=== PATIENT | female | born 1950 | race African-American/Black ===

== ENCOUNTER 2017-11-15 11:29 | Observation (INO) ==
[2017-11-15] MEDS ORDERED: SODIUM CHLORIDE 0.9% 1,000 ML IV STA (13:21)
[2017-11-15] MEDS ORDERED: ONDANSETRON 4 MG/2 ML VIAL IV STA (13:21)
[2017-11-15 14:14] LABS: Bilirubin,Total 0.9 MG/DL (0.2-1.0); Calcium 8.9 MG/DL (8.5-10.1); Osmolality,Calculated 267.1 MOS/KG (273-304); Potassium 2.6 MMOL/L (3.5-5.1); Total Protein 6.7 G/DL (6.4-8.3)
[2017-11-15 14:20] LABS: Basophils % 1.7 % (0.0-0.8); Hematocrit 31.3 VOL% (35.7-47.0); Hemoglobin 10.6 GM/DL (12.0-16.0); Immature Granulocytes % 1.7 %; Immature Granulocytes Absolute 0.02 #; Lymphocytes # 0.3 10*3/uL (1.4-4.0); Lymphocytes % 22.6 % (21.3-54.2); Mean Corpuscular HGB Conc 33.9 GM/DL (32-36); Mean Corpuscular Hemoglobin 27 PG (27-34); Mean Corpuscular Volume 80.7 FL (87-102); Mean Platelet Volume 11.3 FL (9.6-12.0); Monocytes % 1.7 % (1.7-12.7); Neutrophils # 0.8 10*3/uL (1.4-7.4); Neutrophils % 72.3 % (38.7-73.9); Platelet Count 219 T/CUMM (130-400); Red Blood Count 3.88 MC/CUMM (3.8-5.5); Red Cell Distribution Width 17.6 % (9.3-17.3); White Blood Count 1.2 T/CUMM (4-12)
[2017-11-15] MEDS ORDERED: POTASSIUM CHLORIDE 20 MEQ TABLET PO STA (14:44)
[2017-11-15] MEDS ORDERED: ACETAMINOPHEN 500 MG TABLET PO PRN (15:14)
[2017-11-15] MEDS ORDERED: ONDANSETRON 4 MG/2 ML VIAL IV PRN (15:14)
[2017-11-15] MEDS ORDERED: SODIUM CHLORIDE 0.9% 1,000 ML IV ONE (15:22)
[2017-11-15] MEDS ORDERED: traMADol 50 MG TABLET PO PRN (15:22)
[2017-11-15] MEDS ORDERED: DRONABINOL 2.5 MG CAPSULE PO PRN (15:22)
[2017-11-15] MEDS ORDERED: PROMETHAZINE 25 MG TABLET PO PRN (15:22)
[2017-11-15] MEDS ORDERED: HYOSCYAMINE 0.125 MG TABLET PO PRN (15:22)
[2017-11-15 15:44] LABS: Lymphocytes 24 % (20-55); Platelet Estimate Normal; Segmented Neutrophils 71 % (50-85); Total Cells Counted 100
[2017-11-15 15:45] LABS: Polychromasia Few
[2017-11-15] MEDS: metroNIDAZOLE INJ 500 MG in PREMIX 1 EACH IV SCH (16:43)
[2017-11-15] MEDS ORDERED: DEXAMETHASONE 4 MG TABLET PO SCH (17:00)
[2017-11-15] MEDS ORDERED: MAGNESIUM SULF RIDER 4 GM in PREMIX 1 EACH IV ONE ×2 (17:06→18:00)
[2017-11-15] MEDS ORDERED: LEVOFLOXACIN INJ 750 MG in PREMIX 1 EACH IV SCH (18:00)
[2017-11-15] MEDS: FILGRASTIM-SNDZ 300 MCG/0.5 ML SYRINGE SUBCUT SCH (18:27)
[2017-11-15] MEDS: SODIUM CHLORIDE 0.9% 1,000 ML IV SCH (18:27)
[2017-11-15] MEDS: MAGNESIUM CHLORIDE 64 MG TABLET PO SCH (20:37)
[2017-11-15] MEDS: POTASSIUM CHLORIDE 20 MEQ TABLET PO SCH (20:37)
[2017-11-15] MEDS: GABAPENTIN 600 MG TABLET PO SCH (20:38)
[2017-11-15] MEDS ORDERED: SIMVASTATIN 40 MG TABLET PO SCH (21:00)
[2017-11-15 21:36] LABS: Apearance,Urine CLEAR (Clear); Bilirubin,Urine Negative (Negative); Blood, Urine Negative (Negative); Glucose,Urine (UA) 50 mg/dL (Negative); Ketones,Urine 80 mg/dL (Negative); Mucus,Urine Occasional /LPF (Occasional); Nitrite,Urine Negative (Negative); Protein,Urine 30 MG/DL; RBC,Urine 1 /HPF (0-4); Urine Color Straw (Yellow); Urine Urobilinogen < 2.0 EU/DL (0.2-1.0); WBC,Urine 3 /HPF (0-6)
[2017-11-15] MEDS ORDERED: HYDROCORTISONE 2.5% RECTAL CREAM 30 GM TUBE TOP PRN (22:47)
[2017-11-16] MEDS: POTASSIUM CHLORIDE 20 MEQ TABLET PO SCH (02:41)
[2017-11-16] MEDS: metroNIDAZOLE INJ 500 MG in PREMIX 1 EACH IV SCH ×2 (02:41→09:36)
[2017-11-16 06:15] LABS: Basophils % 0.7 % (0.0-0.8); Eosinophils % 1.3 % (0.00-10.9); Hematocrit 24.9 VOL% (35.7-47.0); Immature Granulocytes % 14.6 %; Immature Granulocytes Absolute 0.22 #; Lymphocytes # 0.2 10*3/uL (1.4-4.0); Lymphocytes % 12.6 % (21.3-54.2); Mean Corpuscular HGB Conc 34.1 GM/DL (32-36); Mean Corpuscular Hemoglobin 27 PG (27-34); Mean Corpuscular Volume 79.8 FL (87-102); Mean Platelet Volume 11.6 FL (9.6-12.0); Monocytes % 2.6 % (1.7-12.7); Neutrophils % 68.2 % (38.7-73.9); Red Blood Count 3.12 MC/CUMM (3.8-5.5); Red Cell Distribution Width 17.9 % (9.3-17.3); White Blood Count 1.5 T/CUMM (4-12)
[2017-11-16 06:30] LABS: Hemoglobin 8.5 GM/DL (12.0-16.0); Platelet Count 154 T/CUMM (130-400)
[2017-11-16 06:38] LABS: Band Neutrophils 5 % (0-10); Eosinophils 1 % (0-10); Hypochromasia 1+; Lymphocytes 13 % (20-55); Ovalocytes Slight; Platelet Estimate Normal; Segmented Neutrophils 78 % (50-85); Total Cells Counted 100
[2017-11-16 06:43] LABS: Calcium 8.3 MG/DL (8.5-10.1); Osmolality,Calculated 277.3 MOS/KG (273-304); Potassium 3.1 MMOL/L (3.5-5.1)
[2017-11-16] MEDS ORDERED: POTASSIUM CHLORIDE 20 MEQ TABLET PO ONE (07:25)
[2017-11-16] MEDS ORDERED: predniSONE 5 MG TABLET PO SCH (09:00)
[2017-11-16] MEDS ORDERED: FOLIC ACID 1 MG TABLET PO SCH (09:00)
[2017-11-16] MEDS ORDERED: POTASSIUM CHLORIDE 10 MEQ TABLET PO SCH (09:00)
[2017-11-16] MEDS: SODIUM CHLORIDE 0.9% 1,000 ML IV SCH (09:35)
[2017-11-16] MEDS: MAGNESIUM CHLORIDE 64 MG TABLET PO SCH (09:35)
[2017-11-16] MEDS: FILGRASTIM-SNDZ 300 MCG/0.5 ML SYRINGE SUBCUT SCH (09:35)
[2017-11-16] MEDS: GABAPENTIN 600 MG TABLET PO SCH (09:36)
[2017-11-16 12:19] LABS: Basophils # 0.1 10*3/uL (0.0-0.2); Basophils % 7.4 % (0.0-0.8); Eosinophils % 0.9 % (0.00-10.9); Hematocrit 27.4 VOL% (35.7-47.0); Hemoglobin 9.2 GM/DL (12.0-16.0); Immature Granulocytes % 8.3 %; Immature Granulocytes Absolute 0.09 #; Lymphocytes # 0.3 10*3/uL (1.4-4.0); Lymphocytes % 26.9 % (21.3-54.2); Mean Corpuscular HGB Conc 33.6 GM/DL (32-36); Mean Corpuscular Hemoglobin 27 PG (27-34); Mean Corpuscular Volume 81.1 FL (87-102); Mean Platelet Volume 11.1 FL (9.6-12.0); Monocytes % 3.7 % (1.7-12.7); Neutrophils # 0.6 10*3/uL (1.4-7.4); Neutrophils % 52.8 % (38.7-73.9); Platelet Count 151 T/CUMM (130-400); Red Blood Count 3.38 MC/CUMM (3.8-5.5); Red Cell Distribution Width 17.9 % (9.3-17.3); White Blood Count 1.1 T/CUMM (4-12)
[2017-11-16 12:32] VITALS: BP 114/77
[2017-11-16 12:42] LABS: Calcium 8.4 MG/DL (8.5-10.1); Osmolality,Calculated 271.7 MOS/KG (273-304); Potassium 3.4 MMOL/L (3.5-5.1)
[2017-11-16 13:39] LABS: Band Neutrophils 3 % (0-10); Eosinophils 2 % (0-10); Lymphocytes 29 % (20-55); Platelet Estimate Normal; Segmented Neutrophils 62 % (50-85); Total Cells Counted 100
[2017-11-16 13:40] LABS: Hypochromasia Slight; Poikilocytosis 1+
== END 2017-11-16 15:59 | disposition home or self-care (01) ==
LOC: N.ED 11:29 → N.EDINP 11:29 → N.4E 17:31
PROVIDERS: ADMIT Internal Medicine; ATTEND Internal Medicine